=== PATIENT | female | born 1970 | race Asian ===

== ENCOUNTER 2018-02-25 09:08 | Outpatient (CLI) | payer BC, OTHER ==
--- NOTE | 2018-02-25 10:57 | RAD ---
CHEST 2 VIEWS: HISTORY: Acute myoblastic leukemia, right-sided lower anterior chest pain for 2 weeks. FINDINGS: Heart size is normal. The lungs are clear. No pneumonia, edema, or pleural effusion. IMPRESSION: No acute intrathoracic disease. Stable from prior study. POS: [facility]
--- NOTE | 2018-02-25 11:10 | ULT ---
EXAM: RIGHT UPPER QUADRANT ULTRASOUND: History: History of leukemia. Right upper quadrant abdominal pain for several months. FINDINGS: The liver is borderline enlarged. Liver echogenicity is within normal limits. The gallbladder is demo nstrated without evidence of gallstones, wall thickening, edema, or pericholecystic fluid. Common kai e duct is 0.4 cm. survey technologist indicates a positive Multani's sign. The visualized pancreas and right kidney are unremarkable. IMPRESSION: No evidence of gallstones or ductal dilatation or other significant acute process although the ultras ound technologist indicates a positive Multani's sign. If there is clinical concern for a calculus or acute cholecystitis, follow up nuclear medicine hepatobiliary scan is suggested. POS: [facility]
== END 2018-02-25 09:09 | disposition home or self-care (01) ==
LOC: SCSULT 09:08
PROVIDERS: ATTEND Internal Medicine Hematology & Oncology
DX: R10.11 Right upper quadrant pain (principal); C92.01 Acute myeloblastic leukemia, in remission; E83.19 Other disorders of iron metabolism; E83.111 Hemochromatosis due to repeated red blood cell transfusions
CPT/HCPCS: 71046; 76705

== ENCOUNTER 2018-09-07 08:11 | Outpatient (CLI) | payer BC ==
--- NOTE | 2018-09-07 11:23 | NM ---
HEPATOBILIARY SCAN: Date: 09/07/18 HISTORY: Right upper quadrant pain. No gallstones on ultrasound of 02/25/18. RADIOPHARMACEUTICAL: 5.2 mCi technetium-99m mebrofenin injected intravenously. FINDINGS: There is good tracer extraction by the liver with prompt excretion into the biliary tract and small b owel loops, and normal filling of the gallbladder. The calculated gallbladder ejection fraction measu res 65% following an oral fatty meal. IMPRESSION: Normal exam. POS: [facility]
== END 2018-09-07 08:12 | disposition home or self-care (01) ==
LOC: NM 08:11
PROVIDERS: ATTEND Family Medicine
DX: R10.11 Right upper quadrant pain (principal)
CPT/HCPCS: 78227; A9537

== ENCOUNTER 2019-10-12 13:37 | Outpatient (CLI) | payer BC ==
--- NOTE | 2019-10-14 09:12 | MMO ---
Bilateral MAMMO Bilat Screen [facility]. CLINICAL HISTORY: Patient is 49 years old and is seen for screening. The patient has the following family history of breast cancer: paternal aunt. The patient has a history of leukemia in 2010. VIEWS: The views performed were: bilateral craniocaudal with tomosynthesis and bilateral mediolateral oblique with tomosynthesis. FILMS COMPARED: The present examination has been compared to prior imaging studies performed at [facility] on 12/06/2013, 01/23/2015, 01/31/2016 and 07/16/2016. This study has been interpreted with the assistance of computer-aided detection. MAMMOGRAM FINDINGS: The breasts are heterogeneously dense, which could obscure a lesion on mammography. There are stable benign appearing calcifications seen in both breasts. There are no suspicious masses, suspicious calcifications, or new areas of architectural distortion. IMPRESSION: THERE IS NO MAMMOGRAPHIC EVIDENCE OF MALIGNANCY. A ROUTINE FOLLOW-UP MAMMOGRAM IN 1 YEAR IS RECOMMENDED. THE RESULTS OF THIS EXAM WERE SENT TO THE PATIENT. ACR BI-RADS Category 2 - Benign finding MAMMOGRAPHY NOTE: 1. A negative mammogram report should not delay a biopsy if a dominant of clinically suspicious mass is present. 2. Approximately 10% to 15% of breast cancers are not detected by mammography. 3. Adenosis and dense breasts may obscure an underlying neoplasm. Reported by: BRAD SCHULER MD Electonically Signed: [id number]
== END 2019-10-12 13:38 | disposition home or self-care (01) ==
LOC: BICMAMMO 13:37
PROVIDERS: ATTEND Obstetrics & Gynecology
DX: Z12.31 Encounter for screening mammogram for malignant neoplasm of breast (principal); Z85.6 Personal history of leukemia; Z80.3 Family history of malignant neoplasm of breast
CPT/HCPCS: 77063; 77067

== ENCOUNTER 2021-07-05 12:41 | Outpatient (CLI) | payer BC | END 2021-07-05 12:42 | disposition home or self-care (01) | LOC: BICMAMMO 12:41 | PROVIDERS: ATTEND Internal Medicine | DX: Z12.31 Encounter for screening mammogram for malignant neoplasm of breast (principal); Z85.6 Personal history of leukemia; Z80.3 Family history of malignant neoplasm of breast | CPT/HCPCS: 77063; 77067 ==

== ENCOUNTER 2022-12-17 14:45 | Outpatient (CLI) | payer BC | END 2022-12-17 14:46 | disposition home or self-care (01) | LOC: BICMAMMO 14:45 | PROVIDERS: ATTEND Internal Medicine | DX: Z12.31 Encounter for screening mammogram for malignant neoplasm of breast (principal); Z80.3 Family history of malignant neoplasm of breast; Z85.6 Personal history of leukemia | CPT/HCPCS: 77063; 77067 ==

== ENCOUNTER 2023-04-17 07:39 | Outpatient (CLI) | payer BC | END 2023-04-17 07:40 | disposition home or self-care (01) | LOC: MRI 07:39 | PROVIDERS: ATTEND Anesthesiology | DX: M47.26 Other spondylosis with radiculopathy, lumbar region (principal); M51.16 Intervertebral disc disorders with radiculopathy, lumbar region; D18.09 Hemangioma of other sites; M25.78 Osteophyte, vertebrae; Z98.890 Other specified postprocedural states | CPT/HCPCS: 72148 ==